=== PATIENT | male | born 1940 | race Caucasian/White ===

== ENCOUNTER 2017-03-12 06:39 | Emergency (ER) | payer MEDICARE, BC ==
--- NOTE | 2017-03-12 07:09 | EDM.PDOC ---
ED HPI GENERAL MEDICAL PROBLEM - General Chief Complaint: General Stated Complaint: RESPIRATORY ISSUES Time Seen by Provider: 03/12/17 06:50 Source of Information: Reports: Patient, Family, RN, RN Notes Reviewed History Limitations: Reports: No Limitations - History of Present Illness INITIAL COMMENTS - FREE TEXT/NARRATIVE: Patient presents to the ED at [facility] complaining of worsening SOB, foul odor to urine, and mucous in urine, and generalized weakness. Patient has a history of Stage IV adenocarinoma of the lung. He recently had a blood transfusion for low hemoglobin. He states his appetite has been poor over the past couple of days. He has a chronic cough but states his SOB is worse. Patient most recent Hgb was 9.9 on 03/07/2017. He had his last oncology appointment on 03/02/2017 and seem to be doing well all things considered. Patient also states his nausea has gotten much worse as well. He is taking his Zofran, but states it does not seem to be working anymore. Onset: Gradual Duration: Chronic - Related Data Allergies Allergy/AdvReac Type Severity Reaction Status Date / Time lactose Allergy Cannot Verified 03/12/17 06:48 Remember Penicillins Allergy Rash Verified 03/12/17 06:48 Home Meds: Home Meds Calcium Carbonate/Vitamin D3 [Caltrate 600+D 1500 MG-400 Units] 1 tab PO ASDIRECTED 03/09/15 [History] Cholecalciferol (Vitamin D3) [Vitamin D3] 4,000 unit PO DAILY 03/09/15 [History] Metoprolol Tartrate 100 mg PO BID 03/09/15 [History] Omeprazole [Prilosec] 20 mg PO DAILY 03/09/15 [History] Ondansetron [Zofran ODT] 8 mg PO TID PRN 03/20/15 [History] Aspirin [Halfprin] 81 mg PO DAILY 03/22/15 [History] Cinnamon Bark [Cinnamon] 1,000 mg PO DAILY 03/12/17 [History] Gluc 2KCl/Chondr/Amy Hy/Hy Ac [Glucosamine & Chondroitin Cap] 1 each PO DAILY 03/12/17 [History] Melatonin 3 mg PO BEDTIME 03/12/17 [History] Polyethylene Glycol 3350 [MiraLAX] 8.5 gram PO DAILY PRN 03/12/17 [History] Triamcinolone Acetonide [Triamcinolone Acetonide 0.1% Oint] 15 gm TOP TID PRN [History] Past Medical History HEENT History: Reports: Cataract Cardiovascular History: Reports: CAD, High Cholesterol, Hypertension Respiratory History: Reports: PE Gastrointestinal History: Reports: GERD Genitourinary History: Reports: Urostomy Other Genitourinary History: 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 Neurological History: Reports: CVA Oncologic (Cancer) History: Reports: Bladder, Lung, Prostate Other Oncologic History: Kidney - Infectious Disease History Infectious Disease History: Reports: Measles - Past Surgical History HEENT Surgical History: Reports: None Social & Family History - Family History Family Medical History: Noncontributory - Tobacco Use Smoking Status *Q: Former Smoker Years of Tobacco use: 25 Packs/Tins Daily: 2 Used Tobacco, but Quit: Yes Month Tobacco Last Used: 15 years ago Second Hand Smoke Exposure: No - Recreational Drug Use Recreational Drug Use: No ED ROS GENERAL - Review of Systems Review Of Systems: See Below Constitutional: Reports: Weakness, Fatigue, Decreased Appetite. Denies: Fever, Chills Respiratory: Reports: Shortness of Breath, Cough. Denies: Wheezing, Sputum Cardiovascular: Denies: Chest Pain, Palpitations GI/Abdominal: Reports: Nausea. Denies: Abdominal Pain, Vomiting Skin: Reports: No Symptoms Neurological: Reports: No Symptoms. Denies: Dizziness, Headache ED EXAM, GENERAL - Physical Exam Exam: See Below Exam Limited By: No Limitations General Appearance: Alert, No Apparent Distress, Cachetic Neck: Supple Respiratory/Chest: No Respiratory Distress, Lungs Clear, Decreased Breath Sounds Cardiovascular: Normal Peripheral Pulses, Regular Rate, Rhythm Peripheral Pulses: 2+: Radial (L), Radial (R) GI/Abdominal: Normal Bowel Sounds, Soft, Non-Tender Neurological: Alert, Oriented Skin Exam: Warm, Dry, Intact, No Rash, Other (pale) Course - Vital Signs Last Recorded V/S: Last Vital Signs Temp 35.6 C 03/12/17 06:49 Pulse 115 H 03/12/17 06:49 Resp 24 H 03/12/17 06:49 BP 151/76 H 03/12/17 06:49 Pulse Ox 94 L 03/12/17 06:49 - Orders/Labs/Meds Orders: Active Orders 24 hr Category Date Time Status Chest 1V Frontal [CR] Stat Exams 03/12/17 07:10 Ordered CULTURE BLOOD [BC] Stat Lab 03/12/17 07:25 Received CULTURE BLOOD [BC] Stat Lab 03/12/17 07:34 Received Levofloxacin/Dextrose 5%-Water [Levaquin in D5W 250 MG/ Med 03/12/17 09:32 Ordered 50 ML] 250 mg Premix Bag 1 bag IV ONETIME Sodium Chloride 0.9% [Saline Flush] Med 03/12/17 07:10 Active 10 ml FLUSH ASDIRECTED PRN Blood Culture x2 Reflex Set [OM.PC] Stat Oth 03/12/17 07:11 Ordered Peripheral IV Insertion Adult [OM.PC] Routine Oth 03/12/17 07:10 Ordered Medication Orders Sodium Chloride (Saline Flush) 10 ml FLUSH ASDIRECTED PRN PRN Reason: Keep Vein Open Labs: Laboratory Tests 03/12/17 03/12/17 03/12/17 Range/Units 07:17 07:25 07:25 WBC 1.5 L* (4.0-10.0) x10^3/uL RBC 2.25 L (4.5-6.0) x10^6/uL Hgb 7.9 L* (14.0-18.0) g/dL Hct 23.7 L (40.0-52.0) % MCV 105.3 H D (78.0-93.0) fL MCH 35.1 H (26.0-32.0) pg MCHC 33.3 (32.0-36.0) g/dL RDW Coeff of Rajinder 19.7 H (10.0-15.0) % Plt Count 34 L* D (130-400) x10^3/uL Neut % (Auto) Rug Sizer Lymph % (Auto) Rug Sizer [place] % (Auto) Rug Sizer Eos % (Auto) Rug Sizer Baso % (Auto) Rug Sizer Add Manual Diff Yes Neutrophils % (Manual) 22 L (50-80) % Band Neutrophils % 12 H (0-6) % Lymphocytes % (Manual) 36 (25-50) % Monocytes % (Manual) 30 H (2-11) % Platelet Estimate Marked dec L Polychromasia 1+ slight H Hypochromasia 2+ moderate H Poikilocytosis 2+ moderate H Anisocytosis 2+ moderate H Sodium 137 (136-145) mmol/L Potassium 4.1 (3.5-5.1) mmol/L Chloride 100 (98-107) mmol/L Carbon Dioxide 22 (21-32) mmol/L BUN 34 H (7-18) mg/dL Creatinine 2.1 H (0.70-1.30) mg/dL Est Cr Clr Drug Dosing 30.42 mL/min Estimated GFR (MDRD) 31 Glucose 235 H (74-106) mg/dL Lactic Acid (0.4-2.0) mmol/L Calcium 9.0 (8.5-10.1) mg/dL Corrected Calcium 9.72 (8.5-10.1) mg/dL Phosphorus 3.4 (2.6-4.7) mg/dL Magnesium 1.6 L (1.8-2.4) mg/dL Total Bilirubin 0.8 (0.2-1.0) mg/dL AST 36 (15-37) U/L ALT 49 (16-63) U/L Alkaline Phosphatase 105 (46-116) U/L C-Reactive Protein 16.8 H (<=0.9) mg/dL Total Protein 7.5 (6.4-8.2) g/dL Albumin 3.1 L (3.4-5.0) g/dL Globulin 4.4 Albumin/Globulin Ratio 0.70 Urine Color Yellow (YELLOW) Urine Appearance Slightly cloudy H (CLEAR) Urine pH 6.0 (5.0-8.0) Ur Specific [place] 1.015 Urine Protein 30 H (NEGATIVE) mg/dL Urine Glucose (UA) Negative (NEGATIVE) mg/dL Urine Ketones Negative (NEGATIVE) mg/dL Urine Occult Blood Moderate H (NEGATIVE) Urine Nitrite Negative (NEGATIVE) Urine Bilirubin Negative (NEGATIVE) Urine Urobilinogen 0.2 (0.2) EU/dL Ur Leukocyte Esterase Trace H (NEGATIVE) Urine RBC 5-10 H (NOT SEEN) /HPF Urine WBC 40-50 H (NOT SEEN) /HPF Ur Squamous Epith Cells Few H (NEGATIVE) /HPF Ur Renal Epithelial Cell Few H (NEGATIVE) /HPF Amorphous Sediment Few Urine Bacteria Many H (NEGATIVE) /HPF Granular Casts Few H (NEGATIVE) /HPF Urine Mucus Few H (NEGATIVE) /LPF 03/12/17 Range/Units 07:25 WBC (4.0-10.0) x10^3/uL RBC (4.5-6.0) x10^6/uL Hgb (14.0-18.0) g/dL Hct (40.0-52.0) % MCV (78.0-93.0) fL MCH (26.0-32.0) pg MCHC (32.0-36.0) g/dL RDW Coeff of Rajinder (10.0-15.0) % Plt Count (130-400) x10^3/uL Neut % (Auto) Lymph % (Auto) [place] % (Auto) Eos % (Auto) Baso % (Auto) Add Manual Diff Neutrophils % (Manual) (50-80) % Band Neutrophils % (0-6) % Lymphocytes % (Manual) (25-50) % Monocytes % (Manual) (2-11) % Platelet Estimate Polychromasia Hypochromasia Poikilocytosis Anisocytosis Sodium (136-145) mmol/L Potassium (3.5-5.1) mmol/L Chloride (98-107) mmol/L Carbon Dioxide (21-32) mmol/L BUN (7-18) mg/dL Creatinine (0.70-1.30) mg/dL Est Cr Clr Drug Dosing mL/min Estimated GFR (MDRD) Glucose (74-106) mg/dL Lactic Acid 3.5 H* (0.4-2.0) mmol/L Calcium (8.5-10.1) mg/dL Corrected Calcium (8.5-10.1) mg/dL Phosphorus (2.6-4.7) mg/dL Magnesium (1.8-2.4) mg/dL Total Bilirubin (0.2-1.0) mg/dL AST (15-37) U/L ALT (16-63) U/L Alkaline Phosphatase (46-116) U/L C-Reactive Protein (<=0.9) mg/dL Total Protein (6.4-8.2) g/dL Albumin (3.4-5.0) g/dL Globulin Albumin/Globulin Ratio Urine Color (YELLOW) Urine Appearance (CLEAR) Urine pH (5.0-8.0) Ur Specific [place] Urine Protein (NEGATIVE) mg/dL Urine Glucose (UA) (NEGATIVE) mg/dL Urine Ketones (NEGATIVE) mg/dL Urine Occult Blood (NEGATIVE) Urine Nitrite (NEGATIVE) Urine Bilirubin (NEGATIVE) Urine Urobilinogen (0.2) EU/dL Ur Leukocyte Esterase (NEGATIVE) Urine RBC (NOT SEEN) /HPF Urine WBC (NOT SEEN) /HPF Ur Squamous Epith Cells (NEGATIVE) /HPF Ur Renal Epithelial Cell (NEGATIVE) /HPF Amorphous Sediment Urine Bacteria (NEGATIVE) /HPF Granular Casts (NEGATIVE) /HPF Urine Mucus (NEGATIVE) /LPF Meds: Medications Generic Name Dose Route Start Last Admin Trade Name Freq PRN Reason Stop Dose Admin Sodium Chloride 10 ml 03/12/17 07:10 Saline Flush FLUSH ASDIRECTED PRN Keep Vein Open Discontinued Medications Generic Name Dose Route Start Last Admin Trade Name Freq PRN Reason Stop Dose Admin Acetaminophen 650 mg 03/12/17 08:17 03/12/17 08:21 Tylenol PO 03/12/17 08:18 650 mg NOW ONE Administration Departure - Departure Time of Disposition: 09:37 Disposition: DC/Tfer to [facility] 02 Clinical Impression: Low hemoglobin Pneumonia Qualifiers: Pneumonia type: due to unspecified organism Laterality: left Lung location: lower lobe of lung Qualified Code(s): J18.1 - Lobar pneumonia, unspecified organism Urinary tract infection Qualifiers: Urinary tract infection type: acute cystitis Hematuria presence: without hematuria Qualified Code(s): N30.00 - Acute cystitis without hematuria Neutropenia Qualifiers: Neutropenia type: other drug-induced Qualified Code(s): D70.2 - Other drug- induced agranulocytosis Lung cancer Qualifiers: Laterality: unspecified laterality Lung location: unspecified part of lung Qualified Code(s): C34.90 - Malignant neoplasm of unspecified part of unspecified bronchus or lung Sepsis Qualifiers: Sepsis type: sepsis due to unspecified organism Qualified Code(s): A41.9 - Sepsis, unspecified organism - Discharge Information Forms: Interfacility Transfer [facility] ED Communication - ED Communication Date/Time Date: 03/12/17 Time Called: 08:56 - Discussed Case With (1) Discussed Case With (1): Admitting Provider (Dr. Best, Oncology. Patient will be transferred to [facility]. Report given. All questions answered. Patient will be send ALS ground.) - Problem List Review Problem List Initiated/Reviewed/Updated: Yes - My Orders Last 24 Hours: My Active Orders 03/12/17 07:10 Chest 1V Frontal [CR] Stat Sodium Chloride 0.9% [Saline Flush] 10 ml FLUSH ASDIRECTED PRN Peripheral IV Insertion Adult [OM.PC] Routine 03/12/17 07:11 Blood Culture x2 Reflex Set [OM.PC] Stat 03/12/17 07:25 CULTURE BLOOD [BC] Stat 03/12/17 07:34 CULTURE BLOOD [BC] Stat 03/12/17 09:32 Levofloxacin/Dextrose 5%-Water [Levaquin in D5W 250 MG/50 ML] 250 mg Premix Bag 1 bag IV ONETIME - Assessment/Plan Last 24 Hours: My Active Orders 03/12/17 07:10 Chest 1V Frontal [CR] Stat Sodium Chloride 0.9% [Saline Flush] 10 ml FLUSH ASDIRECTED PRN Peripheral IV Insertion Adult [OM.PC] Routine 03/12/17 07:11 Blood Culture x2 Reflex Set [OM.PC] Stat 03/12/17 07:25 CULTURE BLOOD [BC] Stat 03/12/17 07:34 CULTURE BLOOD [BC] Stat 03/12/17 09:32 Levofloxacin/Dextrose 5%-Water [Levaquin in D5W 250 MG/50 ML] 250 mg Premix Bag 1 bag IV ONETIME Plan: Case discussed with accepting provider. Patient will be send to [facility] for further treatment and care given Oncology history. Patient did meet sepsis criteria. Abx treatment was not started until Oncologist was contacted for transfer as they may want a specific abx given, due to Lung CA history and elevated creat. Patient will be started on a renal dose of Levaquin prior to transfer. Oncology recommended holding off on IVF at this time due to low hemoglobin. Oncology felt IVF may dilute and lower Hgb.
[2017-03-12] MEDS ORDERED: Sodium Chloride 0.9% 10 ML Syringe FLUSH PRN (07:10)
[2017-03-12] MEDS ORDERED: Acetaminophen 500 MG Tab PO ONE (08:12)
[2017-03-12] MEDS ORDERED: Acetaminophen 325 MG Tab PO ONE (08:17)
[2017-03-12] MEDS ORDERED: Levofloxacin/Dextrose 5%-Water 250 MG in Premix Bag 1 BAG IV ONE (09:32)
[2017-03-12 10:11] VITALS: BP 124/76
== END 2017-03-12 10:40 | disposition short-term general hospital (02) ==
LOC: VM.ED 06:39
DX: A41.9 Sepsis, unspecified organism (principal); C34.90 Malignant neoplasm of unspecified part of unspecified bronchus or lung; J18.9 Pneumonia, unspecified organism; N30.00 Acute cystitis without hematuria; D70.2 Other drug-induced agranulocytosis; E78.00 Pure hypercholesterolemia, unspecified; I10 Essential (primary) hypertension; D64.9 Anemia, unspecified; Z88.0 Allergy status to penicillin; Z91.040 Latex allergy status; Z79.899 Other long term (current) drug therapy; Z87.891 Personal history of nicotine dependence
CPT/HCPCS: 36415; 71045; 80053; 81001; 83605; 83735; 84100; 85025; 86140; 87040; 96365; 99285; A9270; J1956; 99284-GF